=== PATIENT | female | born 1945 | race Caucasian/White ===

== ENCOUNTER → 2016-12-26 | Outpatient (RCR) | LOC: NEWBEG 12-05 13:24 | PROVIDERS: ATTEND Psychiatry & Neurology Psychiatry | DX: F32.1 Major depressive disorder, single episode, moderate (principal) | CPT/HCPCS: 90792; 90853 ==

== ENCOUNTER 2017-01-11 10:00 | Outpatient (RCR) | END 2017-01-25 | LOC: NEWBEG 10:00 | PROVIDERS: ATTEND Psychiatry & Neurology Psychiatry | DX: F32.1 Major depressive disorder, single episode, moderate (principal) | CPT/HCPCS: 90853; 99213 ==

== ENCOUNTER 2017-02-13 09:44 | Outpatient (CLI) ==
[2017-02-13 10:21] LABS: ALBUMIN 3.4 g/dL (3.4-5.0); ALBUMIN/GLOBULIN RATIO 0.79; ANION GAP 15.8; BILIRUBIN,TOTAL 0.55 mg/dL (0.00-1.20); BUN/CREATININE RATIO 10.46; CALCIUM 9.5 mg/dL (8.2-10.2); CHOL/HDL RATIO 5.4 (4.5-5.5); CREATININE 0.86 mg/dL (0.60-1.30); POTASSIUM 4.8 mmol/L (3.5-5.10); TOTAL PROTEIN 7.7 g/dL (5.8-8.1)
--- NOTE | 2017-02-13 12:35 | DI ---
EXAM: Thoracic spine three view HISTORY: Back pain COMPARISON: None TECHNIQUE: Three views thoracic spine were performed FINDINGS: There is a spinal stimulator or with two leads terminating at the T7 level. Vertebral laura dies normal height. No fracture. No subluxation. Mild multilevel chronic discogenic degenerative disease with intervertebral disc space narrowing, marginal osteophyte formation. Cervical spinal fu denzel hardware. Atherosclerosis. Median sternotomy wires. IMPRESSION: 1. Spinal stimulator with two leads terminating at T7 level. 2. Mild chronic discogenic degenerative disease.
== END 2017-02-13 09:45 | disposition home or self-care (01) ==
LOC: RAD 09:44
PROVIDERS: ATTEND Pain Medicine Interventional Pain Medicine
DX: M54.5 Low back pain (principal); G89.29 Other chronic pain; R73.9 Hyperglycemia, unspecified; E78.5 Hyperlipidemia, unspecified
CPT/HCPCS: 36415; 80053; 80061; 83036

== ENCOUNTER → 2017-02-25 | Outpatient (RCR) | LOC: NEWBEG 01-28 07:00 | PROVIDERS: ATTEND Psychiatry & Neurology Psychiatry | DX: F32.1 Major depressive disorder, single episode, moderate (principal) | CPT/HCPCS: 90853; 99213 ==

== ENCOUNTER 2017-03-11 09:43 | Outpatient (CLI) ==
[2017-03-11 10:01] LABS: BILIRUBIN,URINE Negative (NEGATIVE); KETONES,URINE Negative (NEGATIVE); LEUKOCYTE ESTERASE ,URINE Trace (NEGATIVE); NITRITE,URINE Negative (NEGATIVE); PH,URINE 6.5 (5-9); PROTEIN,URINE Negative (NEGATIVE); URINE, BLOOD Negative (NEGATIVE)
[2017-03-11 10:03] LABS: ADD URINE MICROSCOPIC YES
[2017-03-11 10:05] LABS: BACTERIA,URINE 1+ (NOT PRESENT)
== END 2017-03-11 09:44 | disposition home or self-care (01) ==
LOC: LAB 09:43
PROVIDERS: ATTEND Family Medicine
DX: R31.9 Hematuria, unspecified (principal)
CPT/HCPCS: 81001; 87086

== ENCOUNTER 2017-03-25 10:00 | Outpatient (RCR) | END 2017-03-28 | LOC: NEWBEG 10:00 | PROVIDERS: ATTEND Psychiatry & Neurology Psychiatry | DX: F32.1 Major depressive disorder, single episode, moderate (principal) | CPT/HCPCS: 90853; 99213 ==

== ENCOUNTER 2017-03-26 08:07 | Outpatient (CLI) | payer OTHER ==
--- NOTE | 2017-03-26 09:38 | US ---
Exam: Hirsch-scale and color Doppler ultrasonographic evaluation of the kidneys and urinary bladder. Comparison: None available. Reason for exam: Blood in urine. FINDINGS: The right kidney measures approximately 10.18 x 4.37 x 4.50 cm with normal appearing echo texture, no hydronephrosis, and no nephrolithiasis. The left kidney measures approximately 11.04 x 4.99 x 4.12 cm with normal appearing echotexture, no hydronephrosis, and no nephrolithiasis. The bladder appears grossly unremarkable without intraluminal stone, diverticula, or mass lesion see n. Impression: Unremarkable ultrasonographic evaluation of the kidneys and urinary bladder.
== END 2017-03-26 08:08 | disposition home or self-care (01) ==
LOC: RAD 08:07
PROVIDERS: ATTEND Family Medicine
DX: R31.9 Hematuria, unspecified (principal)
CPT/HCPCS: 76770

== ENCOUNTER 2017-04-22 10:00 | Outpatient (RCR) | END 2017-04-27 | LOC: NEWBEG 10:00 | PROVIDERS: ATTEND Psychiatry & Neurology Psychiatry | DX: F32.1 Major depressive disorder, single episode, moderate (principal) | CPT/HCPCS: 90853; 99213 ==